=== PATIENT | male | born 1965 | race Caucasian/White ===

== ENCOUNTER 2019-04-30 22:00 | Emergency (ER) | payer BC, OTHER ==
--- NOTE | 2019-05-01 00:22 | EDM.PDOC ---
ED HPI GENERAL MEDICAL PROBLEM - General Chief Complaint: Syncope Stated Complaint: [facility] Time Seen by Provider: 04/30/19 23:59 Source of Information: Reports: Patient, Significant Other (Girlfriend) History Limitations: Reports: No Limitations - History of Present Illness INITIAL COMMENTS - FREE TEXT/NARRATIVE: Mr. Faria is a pleasant 53-year-old man with no significant past medical history, who states that he was eating dinner, when he started feeling lightheaded. He got up, took about 3 steps, then collapsed into the arms of his girlfriend and others, suffering a syncopal attack. He was assisted to the ground, and was not injured. His girlfriend states that he was unconscious only momentarily, got up, but then fell down again in a second syncopal attack. He was out for about 5 seconds this time. When he regained consciousness, he was kept on the floor. A nurse practitioner who witnessed the event came to the patient's aid and told the patient's girlfriend that the patient had a "good pulse". The patient's girlfriend states that the patient looked pale and was clammy. EMS was called, and brought the patient to the ED. The patient states that at no time did he experience any chest pain or palpitations, dyspnea, abdominal pain, nausea, vomiting, constipation, diarrhea , or urinary symptoms. The patient states that he had a similar episode about 6 or 7 years ago. He was taken to the ED the in [place], [place], where, he states, his workup was negative. The patient states that he has been feeling lightheaded for about one month. He states that he saw his PCP, who ordered blood work, an ECG, and an MRI of his head, all of which returned normal. Here in the ED, the patient is found to be hemodynamically stable. He states that he feels completely back to normal. The patient's PCP is Dr. Efren Terry. 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 [No Known Home Meds] 04/30/19 [History] Past Medical History Respiratory History: Reports: Asthma (possible, not tested) Endocrine/Metabolic History: Reports: Obesity/BMI 30+ - Past Surgical History GI Surgical History: Reports: Cholecystectomy (early ) Social & Family History - Tobacco Use Smoking Status *Q: Never Smoker Tobacco Use Within Last Twelve Months: Smokeless Tobacco (Chews 1 can/day) - Caffeine Use Caffeine Use: Reports: None - Alcohol Use Alcohol Use History: Yes Alcohol Use Frequency: Socially (occasionally to excess) - Recreational Drug Use Recreational Drug Use: No - Living Situation & Occupation Living situation: Reports: , with Significant Other (Girlfriend) Occupation: Employed ([employer]) ED ROS GENERAL - Review of Systems Review Of Systems: ROS reveals no pertinent complaints other than HPI. - Physical Exam Exam: See Below Exam Limited By: No Limitations General Appearance: Alert, WD/WN, No Apparent Distress Eye Exam: Bilateral Eye: EOMI, Normal Inspection Ears: Normal External Exam, Hearing Grossly Normal Nose: Normal Inspection Throat/Mouth: Normal Inspection, Normal Lips, Normal Voice, No Airway Compromise Head Exam: Atraumatic, Normocephalic Neck: Normal Inspection, Full Range of Motion Respiratory/Chest: No Respiratory Distress, Lungs Clear, Normal Breath Sounds, No Accessory Muscle Use Cardiovascular: Normal Peripheral Pulses, Regular Rate, Rhythm, No Edema, No Gallop, No JVD, No Murmur, No Rub GI/Abdominal: Normal Bowel Sounds, Soft, Non-Tender, No Organomegaly, No Distention, No Abnormal Bruit, No Mass (Male) Exam: Deferred Rectal (Males) Exam: Deferred Neuro Exam (Abbreviated): Alert, Oriented, CN II-XII Intact, Normal Cognition, No Motor/Sensory Deficits Back Exam: Normal Inspection, Full Range of Motion, NT Extremities: Normal Inspection, Normal Range of Motion, No Pedal Edema, Normal Capillary Refill Psychiatric: Normal Affect Skin Exam: Warm, Dry, Intact, Normal Color, No Rash EKG INTERPRETATION EKG Date: 05/01/19 Time: 00:09 Rhythm: NSR Rate (Beats/Min): 73 [place]: Normal P-Wave: Present QRS: Normal ST-T: Normal (Diffuse J-point elevations, but no T-wave inversions or ischemic changes) QT: Normal Comparison: NA - No Prior EKG Course - Vital Signs Last Recorded V/S: Last Vital Signs Temp 36.5 C 04/30/19 22:05 Pulse 74 04/30/19 22:05 Resp 19 04/30/19 22:05 BP 105/72 04/30/19 22:05 Pulse Ox 93 L 04/30/19 22:05 Orthostatic Blood Pressure [ 118/84 Standing] Orthostatic Blood Pressure [ 98/55 Sitting] Orthostatic Blood Pressure [ 107/71 Supine] - Orders/Labs/Meds Labs: Laboratory Tests 04/30/19 04/30/19 04/30/19 Range/Units 23:25 23:25 23:25 WBC 8.07 (4.23-9.07) K/mm3 RBC 4.71 (4.63-6.08) M/mm3 Hgb 13.8 (13.7-17.5) gm/L Hct 39.2 L (40.1-51.0) % MCV 83.2 (79.0-92.2) fl MCH 29.3 (25.7-32.2) pg MCHC 35.2 (32.2-35.5) g/dl RDW Std Deviation 38.8 (35.1-43.9) fL Plt Count 293 (163-337) K/mm3 MPV 9.3 L (9.4-12.3) fl Neut % (Auto) 68.2 H (34.0-67.9) % Lymph % (Auto) 18.7 L (21.8-53.1) % [place] % (Auto) 10.8 (5.3-12.2) % Eos % (Auto) 1.6 (0.8-7.0) Baso % (Auto) 0.5 (0.1-1.2) % Neut # (Auto) 5.50 H (1.78-5.38) K/mm3 Lymph # (Auto) 1.51 (1.32-3.57) K/mm3 [place] # (Auto) 0.87 H (0.30-0.82) K/mm3 Eos # (Auto) 0.13 (0.04-0.54) K/mm3 Baso # (Auto) 0.04 (0.01-0.08) K/mm3 D-Dimer, Quantitative (0.19-0.50) mg/L Sodium 138 (136-145) mEq/L Potassium 3.5 (3.5-5.1) mEq/L Chloride 106 (98-107) mEq/L Carbon Dioxide 24 (21-32) mEq/L Anion Gap 11.5 (5-15) BUN 22 H (7-18) mg/dL Creatinine 1.1 (0.7-1.3) mg/dL Est Cr Clr Drug Dosing 88.78 mL/min Estimated GFR (MDRD) > 60 (>60) mL/min BUN/Creatinine Ratio 20.0 H (14-18) Glucose 97 (74-106) mg/dL Calcium 8.3 L (8.5-10.1) mg/dL Magnesium 2.2 (1.8-2.4) mg/dl Total Bilirubin 0.4 (0.2-1.0) mg/dL AST 11 L (15-37) U/L ALT 20 (16-63) U/L Alkaline Phosphatase 66 (46-116) U/L Troponin I < 0.017 (0.00-0.056) ng/mL Total Protein 6.9 (6.4-8.2) g/dl Albumin 3.4 (3.4-5.0) g/dl Globulin 3.5 gm/dL Albumin/Globulin Ratio 1.0 (1-2) 04/30/19 Range/Units 23:25 WBC (4.23-9.07) K/mm3 RBC (4.63-6.08) M/mm3 Hgb (13.7-17.5) gm/L Hct (40.1-51.0) % MCV (79.0-92.2) fl MCH (25.7-32.2) pg MCHC (32.2-35.5) g/dl RDW Std Deviation (35.1-43.9) fL Plt Count (163-337) K/mm3 MPV (9.4-12.3) fl Neut % (Auto) (34.0-67.9) % Lymph % (Auto) (21.8-53.1) % [place] % (Auto) (5.3-12.2) % Eos % (Auto) (0.8-7.0) Baso % (Auto) (0.1-1.2) % Neut # (Auto) (1.78-5.38) K/mm3 Lymph # (Auto) (1.32-3.57) K/mm3 [place] # (Auto) (0.30-0.82) K/mm3 Eos # (Auto) (0.04-0.54) K/mm3 Baso # (Auto) (0.01-0.08) K/mm3 D-Dimer, Quantitative 0.24 (0.19-0.50) mg/L Sodium (136-145) mEq/L Potassium (3.5-5.1) mEq/L Chloride (98-107) mEq/L Carbon Dioxide (21-32) mEq/L Anion Gap (5-15) BUN (7-18) mg/dL Creatinine (0.7-1.3) mg/dL Est Cr Clr Drug Dosing mL/min Estimated GFR (MDRD) (>60) mL/min BUN/Creatinine Ratio (14-18) Glucose (74-106) mg/dL Calcium (8.5-10.1) mg/dL Magnesium (1.8-2.4) mg/dl Total Bilirubin (0.2-1.0) mg/dL AST (15-37) U/L ALT (16-63) U/L Alkaline Phosphatase (46-116) U/L Troponin I (0.00-0.056) ng/mL Total Protein (6.4-8.2) g/dl Albumin (3.4-5.0) g/dl Globulin gm/dL Albumin/Globulin Ratio (1-2) - Re-Assessments/Exams Free Text/Narrative Re-Assessment/Exam: 05/01/19 00:20 Orthostatics were checked by the patient's nurse earlier, but only supine to sitting, not standing, since the patient reported dizziness when standing. They returned negative, however, true orthostatics are changes in blood pressure and/ or heart rate between supine and standing, therefore orthostatics were not really ruled out. I therefore had Lissy RN repeat the orthostatics supine to standing with me holding onto him in case he felt dizzy. He stated that he felt a little dizzy when he stood up, but nothing severe, and his subsequent orthostatics are negative. 05/01/19 01:06 2 view chest radiograph appears to be grossly normal. The cardiac silhouette is within normal limits. No pulmonary vascular congestion. No pleural effusions. No focal infiltrate. No pneumothorax. Formal read per the Radiologist pending. The patient's CBC is remarkable for a hematocrit slightly low at 39.2, with the remainder of the CBC being unremarkable. His CMP is remarkable for a BUN slightly elevated at 22, with the remainder of the CMP being unremarkable. His magnesium level is within normal limits at 2.2. His troponin is undetectably low. His D-dimer is within normal limits at 0.24. The cause of the patient's syncope is unclear. He is not orthostatic or anemic, he has not suffered an acute [place], and he does not have a PE. Based on his history , it does not sound like this was a vagal episode, although syncope during a meal or postprandial is a possibility. A cardiac dysrhythmia is a possibility, especially if the patient has a structural heart disorder. Further workup, that may include an echocardiogram, is obviously needed. I will discharge the patient home with instructions that he follow-up with his PCP for further evaluation. Departure - Departure Time of Disposition: 01:27 Disposition: Home, Self-Care 01 Condition: Good Clinical Impression: Syncope - Discharge Information *PRESCRIPTION DRUG MONITORING PROGRAM REVIEWED*: Not Applicable *COPY OF PRESCRIPTION DRUG MONITORING REPORT IN PATIENT ZHENG: Not Applicable Instructions: Syncope, [id number] Referrals: Efren Terry MD [Primary Care Provider] - Forms: ED Department Discharge Additional Instructions: You were seen in the emergency room after becoming lightheaded and passing out, twice. Workup in the ER included blood work, positional blood pressure checks, a chest x-ray, and an ECG. Your entire workup was unremarkable, and does not explain the cause of your passing out. Further workup is necessary. Make sure that you stay adequately hydrated. Gatorade or Powerade are best. Please follow-up with your PCP, Dr. Efren Terry, at the next available appointment. If any other problems, please do not hesitate to return to the ER.
--- NOTE | 2019-05-01 07:40 | CR ---
Chest: 2 views of the chest were obtained. Comparison: Prior chest x-ray 10/23/11. Heart size and mediastinum are within normal limits. Possible nodule adjacent to the right mediastinum overlying the anterior right 1st rib. Slight atelectasis is seen within the left base. Lungs otherwise are clear. Old healed right sided clavicle fracture is noted. Diffuse disc space narrowing and endplate spurring is noted within the spine. Surgical clips noted within the upper abdomen. Impression: 1. Possible nodule within the right upper lung. Noncontrast chest CT recommended to further evaluate. 2. Mild left basilar atelectasis. 3. Incidental bony findings. Nothing acute is otherwise seen. Diagnostic code #9
== END 2019-05-01 01:46 | disposition home or self-care (01) ==
LOC: JD.ED 22:00
DX: R55 Syncope and collapse (principal)
CPT/HCPCS: 36415; 71046; 71046-26; 80053; 83735; 84484; 85025; 85379; 93005; 93010; 99283; 99285-25

== ENCOUNTER 2020-07-10 17:09 | Emergency (ER) | payer OTHER ==
--- NOTE | 2020-07-10 17:42 | EDM.PDOC ---
<Michael Koroma - Last Filed: 07/10/20 18:52> ED HPI GENERAL MEDICAL PROBLEM - General Chief Complaint: Neurological Problem Stated Complaint: MEMORY LOSS Time Seen by Provider: 07/10/20 17:41 - History of Present Illness INITIAL COMMENTS - FREE TEXT/NARRATIVE: 54-year-old male presents the emergency room with memory loss lightheadedness and not feeling right. This afternoon at work the patient was not feeling well he just felt weak and tired and a little dizzy at times he would see stars if he turned his head too quickly. He went home early and this did not improve he had a hard time remembe ring his girlfriend's name his neighbors names and became quite concerned about this and presented to the emergency room. Patient has never had symptoms like this in the past he is not on any routine medications. Patient does state that he drank quite a bit of coffee earlier today. Patient has not had any chest pain chest pressure breathing difficulties or shortness of breath he really cannot identify any weakness on one side or the other. - Related Data Allergies Allergy/AdvReac Type Severity Reaction Status Date / Time No Known Allergies Allergy Verified 07/10/20 17:25 Home Meds: Home Meds Meloxicam 15 mg PO DAILY 07/10/20 [History] Rizatriptan Benzoate [Rizatriptan] 1 tab PO ASDIRECTED PRN #3 tab.rapdis [Rx] Past Medical History Respiratory History: Reports: Asthma (possible, not tested) Endocrine/Metabolic History: Reports: Obesity/BMI 30+ - Past Surgical History GI Surgical History: Reports: Cholecystectomy (early ) Social & Family History - Tobacco Use Tobacco Use Status *Q: Never Tobacco User Second Hand Smoke Exposure: No - Caffeine Use Caffeine Use: Reports: None - Recreational Drug Use Recreational Drug Use: No - Living Situation & Occupation Living situation: Reports: , with Significant Other (Girlfriend) Occupation: Employed ([employer]) ED ROS GENERAL - Review of Systems Review Of Systems: See Below Constitutional: Reports: Weakness, Fatigue. Denies: Fever, Chills HEENT: Reports: Other (He sees stars at times) Respiratory: Reports: No Symptoms Cardiovascular: Reports: No Symptoms Endocrine: Reports: No Symptoms GI/Abdominal: Reports: Other (Little nauseated) Musculoskeletal: Reports: No Symptoms Skin: Reports: No Symptoms Neurological: Reports: Confusion, Dizziness, Difficulty Walking Psychiatric: Reports: No Symptoms Hematologic/Lymphatic: Reports: No Symptoms Immunologic: Reports: No Symptoms ED EXAM, NEURO - Physical Exam Exam: See Below Exam Limited By: No Limitations General Appearance: Alert, No Apparent Distress Eye Exam: Bilateral Eye: EOMI, Normal Inspection, PERRL Ears: Normal External Exam, Normal Canal, Hearing Grossly Normal, Normal TMs Nose: Normal Inspection, Normal Mucosa, No Blood Throat/Mouth: Normal Inspection, Normal Lips, Normal Gums, Normal Oropharynx, Normal Voice, No Airway Compromise Head Exam: Atraumatic, Normocephalic Neck: Normal Inspection, Supple, Non-Tender, Full Range of Motion. No: Lymphadenopathy (L), Lymphadenopathy (R) Respiratory/Chest: No Respiratory Distress, Lungs Clear, Normal Breath Sounds Cardiovascular: Regular Rate, Rhythm, No Edema, No Murmur GI/Abdominal: Normal Bowel Sounds, Soft, Non-Tender Neurological: Other (The patient is answering questions appropriately from a I did try and stand him a became lightheaded so I sat him back down and he did better. Best I can tell is all his muscle groups in all 4 extremities are equal and appropriate bilaterally. Deep tendon reflexes at the brachial radialis are equal and appropriate bilaterally cranial nerve exam is entirely within normal limits 2 through 12. And [id number] testing is normal.) Course - Re-Assessments/Exams Free Text/Narrative Re-Assessment/Exam: 07/10/20 18:59 At this time it is change of shift further care and disposition per Dr. Wolf Departure - Departure Disposition: Home, Self-Care 01 Clinical Impression: Migraine with aura - Discharge Information Referrals: Efren Terry MD [Primary Care Provider] - Forms: ED Department Discharge Additional Instructions: You were seen in the emergency room after developing weakness, tiredness, flashing lights, and a headache this afternoon. Work-up in the ER included positional blood pressure checks, an Accu-Chek, blood tests, a CT of your head without contrast, and an ECG. Your entire work-up was unremarkable. You have not suffered a stroke or a heart attack. No significant lab abnormalities were found. Your headache resolved after you were given IM Haldol, indicating that your symptoms were due to a migraine. We recommend that you stay adequately hydrated and get plenty of rest tonight in a dark, quiet place. You should feel back to normal in the morning. A prescription for the anti-migraine medicine rizatriptan (Maxalt) has been sent to the [facility], located just south and across the [address] from [facility]. Dissolve 1 tablet of rizatriptan in your mouth, like a lozenge, at the earliest onset of migraine symptoms. You may repeat after 2 hours, if needed, to a maximum of 3 tablets within a 24-hour period. If rizatriptan works to treat your migraines, we recommend that you follow-up with your PCP, Dr. Terry, to get an additional prescription. If any other problems, please do not hesitate to return to the ER. Sepsis Event Note (ED) - Evaluation Sepsis Screening Result: No Definite Risk <Robert Wolf - Last Filed: 07/10/20 21:47> #1 Interpretation EKG Date: 07/10/20 Time: 19:16 Rhythm: NSR Rate (Beats/Min): 69 [place]: Normal P-Wave: Present (? LAE) QRS: Normal ST-T: Normal QT: Normal Comparison: No Change Course - Vital Signs Last Recorded V/S: Last Vital Signs Temp 36.3 C 07/10/20 17:22 Pulse 81 07/10/20 17:22 Resp 16 07/10/20 17:22 BP 148/109 H 07/10/20 17:22 Pulse Ox 95 07/10/20 17:22 Orthostatic Blood Pressure [ 147/116 Standing] Orthostatic Blood Pressure [ 144/131 Sitting] Orthostatic Blood Pressure [ 142/94 Supine] - Orders/Labs/Meds Orders: Active Orders 24 hr Category Date Time Status EKG 12 Lead [EKG Documentation Completion] [RC] STAT Care 07/10/20 17:51 Active Orthostatic Vital Signs [RC] STAT Care 07/10/20 19:37 Active Head wo Cont [CT] Stat Exams 07/10/20 17:40 Taken Labs: Laboratory Tests 07/10/20 07/10/20 07/10/20 Range/Units 17:34 17:50 17:50 WBC 9.97 H (4.23-9.07) K/mm3 RBC 5.82 (4.63-6.08) M/mm3 Hgb 16.1 D (13.7-17.5) gm/dl Hct 48.0 (40.1-51.0) % MCV 82.5 (79.0-92.2) fl MCH 27.7 (25.7-32.2) pg MCHC 33.5 (32.2-35.5) g/dl RDW Std Deviation 39.5 (35.1-43.9) fL Plt Count 347 H (163-337) K/mm3 MPV 9.3 L (9.4-12.3) fl Neutrophils % (Manual) 60 (40-60) % Band Neutrophils % 2 (0-10) % Lymphocytes % (Manual) 31 (20-40) % Atypical Lymphs % 0 % Monocytes % (Manual) 4 (2-10) % Eosinophils % (Manual) 2 (0.8-7.0) % Basophils % (Manual) 1 (0.2-1.2) Platelet Estimate Adequate RBC Morph Comment Normal PT 10.3 (9.7-12.0) SECONDS INR 0.96 Sodium (136-145) mEq/L Potassium (3.5-5.1) mEq/L Chloride (98-107) mEq/L Carbon Dioxide (21-32) mEq/L Anion Gap (5-15) BUN (7-18) mg/dL Creatinine (0.7-1.3) mg/dL Est Cr Clr Drug Dosing mL/min Estimated GFR (MDRD) (>60) mL/min BUN/Creatinine Ratio (14-18) Glucose (74-106) mg/dL POC Glucose 74 (70-105) mg/dL Calcium (8.5-10.1) mg/dL Total Bilirubin (0.2-1.0) mg/dL AST (15-37) U/L ALT (16-63) U/L Alkaline Phosphatase (46-116) U/L Troponin I (0.00-0.056) ng/mL Total Protein (6.4-8.2) g/dl Albumin (3.4-5.0) g/dl Globulin gm/dL Albumin/Globulin Ratio (1-2) 11/16/20 Range/Units 17:50 WBC (4.23-9.07) K/mm3 RBC (4.63-6.08) M/mm3 Hgb (13.7-17.5) gm/dl Hct (40.1-51.0) % MCV (79.0-92.2) fl MCH (25.7-32.2) pg MCHC (32.2-35.5) g/dl RDW Std Deviation (35.1-43.9) fL Plt Count (163-337) K/mm3 MPV (9.4-12.3) fl Neutrophils % (Manual) (40-60) % Band Neutrophils % (0-10) % Lymphocytes % (Manual) (20-40) % Atypical Lymphs % % Monocytes % (Manual) (2-10) % Eosinophils % (Manual) (0.8-7.0) % Basophils % (Manual) (0.2-1.2) Platelet Estimate RBC Morph Comment PT (9.7-12.0) SECONDS INR Sodium 134 L (136-145) mEq/L Potassium 4.0 (3.5-5.1) mEq/L Chloride 98 (98-107) mEq/L Carbon Dioxide 26 (21-32) mEq/L Anion Gap 14.0 (5-15) BUN 20 H (7-18) mg/dL Creatinine 1.2 (0.7-1.3) mg/dL Est Cr Clr Drug Dosing 80.45 mL/min Estimated GFR (MDRD) > 60 (>60) mL/min BUN/Creatinine Ratio 16.7 (14-18) Glucose 92 (74-106) mg/dL POC Glucose (70-105) mg/dL Calcium 8.7 (8.5-10.1) mg/dL Total Bilirubin 0.5 (0.2-1.0) mg/dL AST 14 L (15-37) U/L ALT 33 (16-63) U/L Alkaline Phosphatase 77 (46-116) U/L Troponin I < 0.017 (0.00-0.056) ng/mL Total Protein 7.9 (6.4-8.2) g/dl Albumin 3.8 (3.4-5.0) g/dl Globulin 4.1 gm/dL Albumin/Globulin Ratio 0.9 L (1-2) Meds: Medications Discontinued Medications Generic Name Dose Route Start Last Admin Trade Name Freq PRN Reason Stop Dose Admin Benztropine Mesylate 1 mg 07/10/20 20:23 07/10/20 20:37 Cogentin PO 07/10/20 20:24 1 mg ONETIME STA Administration Haloperidol Lactate 5 mg 07/10/20 20:23 07/10/20 20:37 Haldol IM 07/10/20 20:24 5 mg ONETIME ONE Administration - Re-Assessments/Exams Free Text/Narrative Re-Assessment/Exam: 07/10/20 19:[address] Koroma. The patient's CBC is remarkable for a WBC count slightly elevated at 9.97, but with only 2% bandemia. He has a mild thrombocytosis of 347,000, with the remainder of his CBC being unremarkable. His CMP is remarkable for a sodium slightly depressed at 134, a BUN slightly elevated at 20, but with a Cr normal at 1.2, and the remainder of his CMP being unremarkable. His troponin is undetectably low. His INR is within normal limits at 0.96. CT of the head without contrast is read by vRvlad as: 1. Negative head CT. 2. [place] Stroke Program Early CT Score (ASPECTS) = 10. I have ordered orthostatics. 07/10/20 20:03 The patient is not orthostatic. 07/10/20 20:24 I evaluated the patient. He reports that he had developed a headache, a dull ache felt across his forehead, along with visual flashing lights around 16:00. The flashing lights resolved after about 30 minutes, although his headache per sists until now. He also feels a little lightheaded at this time. At no time did he have any nausea or vomiting, and while he had some memory loss earlier, he states that has since resolved. At no time did he have any tingling, numbness, or weakness. The patient states that he had similar symptoms about 1 year ago, was seen in this ED, with a negative work-up. He states that he subsequently followed up with both a Neurologist and a Jockey'S Agent, with negative work-ups. The cause of his symptoms was never determined. The patient's neurologic examination is completely normal at this time. I suspect that he is suffering from a migraine. I therefore proposed that we treat him with IM Haldol and oral Cogentin, to see if that resolves his headache and lightheadedness. The patient agreed. Since he does not have any nausea or vomiting, he does not need IV Zofran or IV fluid. 07/10/20 21:40 Following IM Haldol, the patient reports complete resolution of his headache, confirming that his symptoms were due to a migraine. He does report, however, increased jitteriness, which is a known potential side effect of Haldol. I would expect that his symptoms should be completely resolved by the morning. I will discharge him home with a prescription for rizatriptan. Departure - Departure Time of Disposition: 21:40 Condition: Good - Discharge Information *PRESCRIPTION DRUG MONITORING PROGRAM REVIEWED*: Not Applicable *COPY OF PRESCRIPTION DRUG MONITORING REPORT IN PATIENT ZHENG: Not Applicable Sepsis Event Note (ED) - Focused Exam Vital Signs: Vital Signs Temp Pulse Resp BP Pulse Ox 07/10/20 17:22 36.3 C 81 16 148/109 H 95 - My Orders Last 24 Hours: My Active Orders 07/10/20 19:37 Orthostatic Vital Signs [RC] STAT - Assessment/Plan Last 24 Hours: My Active Orders 07/10/20 19:37 Orthostatic Vital Signs [RC] STAT
[2020-07-10] MEDS ORDERED: Benztropine 1 MG Tab PO STA (20:23)
[2020-07-10] MEDS ORDERED: Haloperidol Lactate 5 MG/ML SDV IM ONE (20:23)
--- NOTE | 2020-07-11 08:39 | CT ---
PROCEDURE INFORMATION: Exam: CT Head Without Contrast Exam date and time: 07/10/2020 5:39 PM Age: 54 years old Clinical indication: Altered mental status/memory loss TECHNIQUE: Imaging protocol: Computed tomography of the head without contrast. Radiation optimization: All CT scans at this facility use at least one of these dose optimization techniques: automated exposure control; mA and/or kV adjustment per patient size (includes targeted exams where dose is matched to clinical indication); or iterative reconstruction. Other technique: STROKE PROTOCOL was implemented. COMPARISON: No relevant prior studies available. FINDINGS: Brain: No mass effect or midline shift. No abnormal densities are seen intracranially; no sign of acute intracranial hemorrhage or cerebral edema. Cerebral ventricles: No ventriculomegaly. Bones/joints: Skull base and overlying calvarium are intact. No lytic or osteosclerotic lesions. Paranasal sinuses: Visualized sinuses are unremarkable. No fluid levels. Mastoid air cells: Visualized mastoid air cells are well aerated. Soft tissues: Unremarkable. IMPRESSION: 1. Negative head CT. 2. [place] Stroke Program Early CT Score (ASPECTS) = 10. Thank you for allowing us to participate in the care of your patient. Dictated and Authenticated by: Andrwe Jimenez MD 07/10/2020 6:56 PM Central Time ([place] & [place]) [facility]TT[facility]
== END 2020-07-10 21:55 | disposition home or self-care (01) ==
LOC: JD.ED 17:09
DX: G43.109 Migraine with aura, not intractable, without status migrainosus (principal); E66.9 Obesity, unspecified; Z68.39 Body mass index [BMI] 39.0-39.9, adult
CPT/HCPCS: 36415; 70450; 80053; 82962; 84484; 85007; 85027; 85610; 93005; 96372; 99285; A9270; J1630; 93010; 99284

== ENCOUNTER 2020-07-24 10:20 | Emergency (ER) | payer OTHER ==
--- NOTE | 2020-07-24 11:45 | EDM.PDOC ---
ED HPI GENERAL MEDICAL PROBLEM - General Chief Complaint: General Stated Complaint: CONFUSED,DIZZY,LIGHTHEADED Time Seen by Provider: 07/24/20 11:22 Source of Information: Reports: Patient, RN Notes Reviewed History Limitations: Reports: No Limitations - History of Present Illness INITIAL COMMENTS - FREE TEXT/NARRATIVE: Patient is a 54-year-old male who presents to the ED for his ongoing confusion, dizziness lightheadedness. Patient was evaluated in this ER a couple weeks ago, was thought to have a migraine, given some IM Haldol and discharged home. He states that the IM Haldol took about 2 days to get out of his system, and he does not believe that that helped all too much he has been having increased confusion after this, and he states is been worse since Thanksgiving again. He states is pretty persistent however it is episodic, and comes and goes. He notes at times where he can even remember his girlfriend's last names or he cannot recognize people on the TV that he should know. And then all of a sudden it gets better. He has been dealing this for quite some time, he has had multiple work-ups with multiple specialists and no one seems to find any thing wrong with him. He did have a head CT at his last ER visit, and everything was normal. He notes while he is sitting here and in the waiting room, his memory cleared up a bit and he feels better. He was concerned about possible carbon monoxide poisoning. His primary care provider is Dr. Terry. He has no headache, no fevers or chills, no cough/shortness of breath, no nausea/vomiting/diarrhea. He is complaining mainly of these memory issues. He cannot really put a finger on it, and he does states he feels confused when the spells happen. His primary care provider was questioning the possibility of a brain MRI for further evaluation. - Related Data Allergies Allergy/AdvReac Type Severity Reaction Status Date / Time No Known Allergies Allergy Verified 07/10/20 17:25 Home Meds: Home Meds Meloxicam 15 mg PO DAILY 07/10/20 [History] Past Medical History Respiratory History: Reports: Asthma Musculoskeletal History: Reports: Other (See Below) Other Musculoskeletal History: Hip pain Neurological History: Reports: Other (See Below) Other Neuro History: Head injury Endocrine/Metabolic History: Reports: Obesity/BMI 30+ - Past Surgical History GI Surgical History: Reports: Cholecystectomy Social & Family History - Family History Family Medical History: No Pertinent Family History - Tobacco Use Tobacco Use Status *Q: Former Tobacco User Used Tobacco, but Quit: Yes Month/Year Tobacco Last Used: 06/2019 - Caffeine Use Caffeine Use: Reports: None - Recreational Drug Use Recreational Drug Use: No - Living Situation & Occupation Living situation: Reports: , with Significant Other (Girlfriend) 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 ED EXAM, GENERAL - Physical Exam Exam: See Below Exam Limited By: No Limitations General Appearance: Alert, WD/WN, No Apparent Distress Eye Exam: Bilateral Eye: EOMI, Normal Inspection, PERRL Respiratory/Chest: No Respiratory Distress, Lungs Clear, Normal Breath Sounds, No Accessory Muscle Use, Chest Non-Tender Cardiovascular: Normal Peripheral Pulses, Regular Rate, Rhythm, No Murmur Peripheral Pulses: 2+: Radial (L), Radial (R) GI/Abdominal: Normal Bowel Sounds, Soft, Non-Tender, No Distention, No Mass Extremities: Normal Inspection, Normal Capillary Refill Neurological: Alert, Oriented, Normal Cognition, No Motor/Sensory Deficits Psychiatric: Normal Affect, Normal Mood Skin Exam: Warm, Dry, Intact, Normal Color, No Rash #1 Interpretation EKG Date: 07/24/20 Time: 10:46 Rhythm: NSR Rate (Beats/Min): 92 [place]: Normal P-Wave: Present QRS: Normal ST-T: Normal QT: Prolonged (mildly at 478) ME/PQ Interval: 167 EKG Interpretation Comments: Reviewed by myself and Dr. 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 There is a suspect delta wave present in V3 as well, consider Muñoz [id number] syndrome. Course - Vital Signs Last Recorded V/S: Last Vital Signs Temp 98.0 F 07/24/20 10:51 Pulse 40 L 07/24/20 10:51 Resp 12 07/24/20 10:51 BP 128/93 H 07/24/20 10:51 Pulse Ox 94 L 07/24/20 10:51 - Orders/Labs/Meds Orders: Active Orders 24 hr Category Date Time Status EKG Documentation Completion [RC] STAT Care 07/24/20 11:26 Active Labs: Laboratory Tests 07/24/20 07/24/20 07/24/20 Range/Units 10:50 10:50 11:30 WBC 6.97 (4.23-9.07) K/mm3 RBC 5.38 (4.63-6.08) M/mm3 Hgb 15.6 (13.7-17.5) gm/dl Hct 44.0 (40.1-51.0) % MCV 81.8 (79.0-92.2) fl MCH 29.0 (25.7-32.2) pg MCHC 35.5 (32.2-35.5) g/dl RDW Std Deviation 39.6 (35.1-43.9) fL Plt Count 285 (163-337) K/mm3 MPV 9.7 (9.4-12.3) fl Neut % (Auto) 67.0 (34.0-67.9) % Lymph % (Auto) 20.7 L (21.8-53.1) % Tift % (Auto) 10.2 (5.3-12.2) % Eos % (Auto) 1.7 (0.8-7.0) Baso % (Auto) 0.4 (0.1-1.2) % Neut # (Auto) 4.67 (1.78-5.38) K/mm3 Lymph # (Auto) 1.44 (1.32-3.57) K/mm3 Tift # (Auto) 0.71 (0.30-0.82) K/mm3 Eos # (Auto) 0.12 (0.04-0.54) K/mm3 Baso # (Auto) 0.03 (0.01-0.08) K/mm3 Manual Slide Review Not Reportable Puncture Site Rt radial ABG pH 7.45 (7.35-7.45) ABG pCO2 35.4 (35.0-45.0) mmHg ABG pO2 64.0 L (80.0-100.0) mmHg ABG HCO3 24.1 (22.0-26.0) meq/L ABG O2 Saturation 91.8 L (96.0-97.0) % ABG Base Excess 1.0 (-2-2.0) ABG Hemoglobin (12.0-18.0) g/L ABG Oxyhemoglobin ABG Carboxyhemoglobin (0.00-1.50) %THgb ABG Methemoglobin (0.00-1.5) % Andrew Test Positive O2 Delivery Device Room air FiO2 0.00 L (21.00-100.00) % Sodium 136 (136-145) mEq/L Potassium 3.9 (3.5-5.1) mEq/L Chloride 100 (98-107) mEq/L Carbon Dioxide 25 (21-32) mEq/L Anion Gap 14.9 (5-15) BUN 19 H (7-18) mg/dL Creatinine 1.2 (0.7-1.3) mg/dL Est Cr Clr Drug Dosing 80.45 mL/min Estimated GFR (MDRD) > 60 (>60) mL/min BUN/Creatinine Ratio 15.8 (14-18) Glucose 92 (74-106) mg/dL Calcium 8.9 (8.5-10.1) mg/dL Total Bilirubin 0.6 (0.2-1.0) mg/dL AST 17 (15-37) U/L ALT 38 (16-63) U/L Alkaline Phosphatase 77 (46-116) U/L Total Protein 7.7 (6.4-8.2) g/dl Albumin 3.8 (3.4-5.0) g/dl Globulin 3.9 gm/dL Albumin/Globulin Ratio 1.0 (1-2) 30/20 Range/Units 11:37 WBC (4.23-9.07) K/mm3 RBC (4.63-6.08) M/mm3 Hgb (13.7-17.5) gm/dl Hct (40.1-51.0) % MCV (79.0-92.2) fl MCH (25.7-32.2) pg MCHC (32.2-35.5) g/dl RDW Std Deviation (35.1-43.9) fL Plt Count (163-337) K/mm3 MPV (9.4-12.3) fl Neut % (Auto) (34.0-67.9) % Lymph % (Auto) (21.8-53.1) % Tift % (Auto) (5.3-12.2) % Eos % (Auto) (0.8-7.0) Baso % (Auto) (0.1-1.2) % Neut # (Auto) (1.78-5.38) K/mm3 Lymph # (Auto) (1.32-3.57) K/mm3 Tift # (Auto) (0.30-0.82) K/mm3 Eos # (Auto) (0.04-0.54) K/mm3 Baso # (Auto) (0.01-0.08) K/mm3 Manual Slide Review Puncture Site ABG pH (7.35-7.45) ABG pCO2 (35.0-45.0) mmHg ABG pO2 (80.0-100.0) mmHg ABG HCO3 (22.0-26.0) meq/L ABG O2 Saturation (96.0-97.0) % ABG Base Excess (-2-2.0) ABG Hemoglobin 15.5 (12.0-18.0) g/L ABG Oxyhemoglobin 89.4 ABG Carboxyhemoglobin 1.2 (0.00-1.50) %THgb ABG Methemoglobin 1.3 (0.00-1.5) % Andrew Test O2 Delivery Device Room air FiO2 (21.00-100.00) % Sodium (136-145) mEq/L Potassium (3.5-5.1) mEq/L Chloride (98-107) mEq/L Carbon Dioxide (21-32) mEq/L Anion Gap (5-15) BUN (7-18) mg/dL Creatinine (0.7-1.3) mg/dL Est Cr Clr Drug Dosing mL/min Estimated GFR (MDRD) (>60) mL/min BUN/Creatinine Ratio (14-18) Glucose (74-106) mg/dL Calcium (8.5-10.1) mg/dL Total Bilirubin (0.2-1.0) mg/dL AST (15-37) U/L ALT (16-63) U/L Alkaline Phosphatase (46-116) U/L Total Protein (6.4-8.2) g/dl Albumin (3.4-5.0) g/dl Globulin gm/dL Albumin/Globulin Ratio (1-2) - Re-Assessments/Exams Free Text/Narrative Re-Assessment/Exam: 07/24/20 11:45 Patient presents to the ED for evaluation of his forgetfulness and confusion. We will repeat some baseline labs, and get a blood gas with cooximetry, as the patient was concerned for carbon monoxide poisoning. EKG was done at time of triage initially because the nurse thought that his heart rate was in the 30s. EKG demonstrates a sinus rhythm of 92 bpm. He does have multiple PVCs causing some of the rate abnormalities I believe she appreciated. At this time if work- up is inconclusive or unremarkable, he will be given an outpatient MRI order for further evaluation. 07/24/20 12:19 Labs are unremarkable, ABG with coox is also in normal limits. Patient will be discharged home with a outpatient MRI order and have him follow-up with Dr. Terry for this. Departure - Departure Time of Disposition: 12:20 Disposition: Home, Self-Care 01 Condition: Good Clinical Impression: Forgetfulness - Discharge Information *PRESCRIPTION DRUG MONITORING PROGRAM REVIEWED*: No *COPY OF PRESCRIPTION DRUG MONITORING REPORT IN PATIENT ZHENG: No Referrals: Efren Terry MD [Primary Care Provider] - Forms: ED Department Discharge Additional Instructions: You were evaluated in the ER today for your ongoing forgetful/confusion e pisodes. Laboratory evaluation today was within normal limits, your carbon monoxide levels were not elevated. At this time we have provided you with an outpatient order for a brain MRI, you are currently scheduled for July 26 at 8 AM. Please come 15 to 20 minutes prior to your scheduled time to complete paperwork and questionnaires that may need to be filled out. If they should need any more information, they will likely call you, please corn picker the phone if you receive a call from the hospital or a private number in the next few days . Please continue all of your regular medications as prescribed. You will need to follow-up with Dr. Terry after your MRI has been completed for results and further management. Please schedule an appointment with him sometime by the end of this week, or beginning of next for this. Please return to the ER at any time if your symptoms change or worsen. Sepsis Event Note (ED) - Evaluation Sepsis Screening Result: No Definite Risk - Focused Exam Vital Signs: Vital Signs Temp Pulse Pulse Resp BP Pulse Ox 07/24/20 10:51 98.0 F 79 40 L 12 128/93 H 94 L - My Orders Last 24 Hours: My Active Orders 07/24/20 11:26 EKG Documentation Completion [RC] STAT - Assessment/Plan Last 24 Hours: My Active Orders 07/24/20 11:26 EKG Documentation Completion [RC] STAT
== END 2020-07-24 12:45 | disposition home or self-care (01) ==
LOC: JD.ED 10:20
DX: R41.3 Other amnesia (principal); J45.909 Unspecified asthma, uncomplicated; E66.9 Obesity, unspecified; Z68.38 Body mass index [BMI] 38.0-38.9, adult; Z79.899 Other long term (current) drug therapy; Z87.891 Personal history of nicotine dependence
CPT/HCPCS: 36415; 36600; 80053; 82803; 85025; 93005; 93010; 99283; 99285-25

== ENCOUNTER 2020-07-27 02:19 | Emergency (ER) | payer OTHER ==
--- NOTE | 2020-07-27 02:41 | EDM.PDOC ---
ED HPI GENERAL MEDICAL PROBLEM - General Chief Complaint: General Stated Complaint: SOB Time Seen by Provider: 07/27/20 02:29 - History of Present Illness INITIAL COMMENTS - FREE TEXT/NARRATIVE: 54-year-old male presents the emergency room with shortness of breath. Patient states no matter what he does he cannot catch his breath. His respirations are nonlabored however it is reported by nursing he was little tachypneic when he arrived here. But this seems to have resolved and he is no better he has no breathing difficulties shortness of breath certainly no chest pain. He has not been coughing. This is been going on essentially all evening. The patient tried to lay down early this evening and thought maybe he would get some rest but just never materialized. The patient uses a CPAP however he could not tolerate the mask and oftentimes when he has episodes like this he just cannot tolerate the mask. Patient's been diagnosed with asthma however his Symbicort and albuterol did not seem to help with the symptoms. - Related Data Allergies Allergy/AdvReac Type Severity Reaction Status Date / Time No Known Allergies Allergy Verified 07/27/20 02:36 Home Meds: Home Meds Meloxicam 15 mg PO DAILY 07/10/20 [History] LORazepam [Ativan] 1 mg PO BEDTIME #15 tab 07/27/20 [Rx] Past Medical History Respiratory History: Reports: Asthma Musculoskeletal History: Reports: Other (See Below) Other Musculoskeletal History: Hip pain Neurological History: Reports: Other (See Below) Other Neuro History: Head injury Endocrine/Metabolic History: Reports: Obesity/BMI 30+ - Past Surgical History GI Surgical History: Reports: Cholecystectomy Social & Family History - Family History Family Medical History: No Pertinent Family History - Caffeine Use Caffeine Use: Reports: None - Living Situation & Occupation Living situation: Reports: , with Significant Other (Girlfriend) 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 Denies: Wheezing, Pleuritic Chest Pain, Cough, Sputum, Hemoptysis Cardiovascular: Reports: No Symptoms. Denies: Chest Pain Endocrine: Reports: Fatigue GI/Abdominal: Reports: No Symptoms : Reports: No Symptoms Musculoskeletal: Reports: No Symptoms Skin: Reports: No Symptoms Neurological: Reports: No Symptoms Psychiatric: Reports: Anxiety. Denies: Agitation, Depression, Homicidal Ideation, Mood Lability, Suicidal Ideation Hematologic/Lymphatic: Reports: No Symptoms Immunologic: Reports: No Symptoms ED EXAM, GENERAL - Physical Exam Exam: See Below Exam Limited By: No Limitations General Appearance: Alert, Anxious Eye Exam: Bilateral Eye: Normal Inspection, PERRL Ears: Normal External Exam, Normal Canal, Hearing Grossly Normal, Normal TMs Nose: Normal Inspection, Normal Mucosa, No Blood Throat/Mouth: Normal Inspection, Normal Lips, Normal Teeth, Normal Gums, Normal Oropharynx, Normal Voice, No Airway Compromise Head: Atraumatic, Normocephalic Neck: Normal Inspection, Supple, Non-Tender, Full Range of Motion Respiratory/Chest: No Respiratory Distress, Lungs Clear, Normal Breath Sounds, Other (Respirations very normal) Cardiovascular: Normal Peripheral Pulses, Regular Rate, Rhythm, No Edema, No Murmur GI/Abdominal: Normal Bowel Sounds, Soft, Non-Tender, Other (Some obesity) Back Exam: Normal Inspection. No: CVA Tenderness (L), CVA Tenderness (R) Extremities: Normal Inspection, No Pedal Edema Neurological: Alert, Oriented, Normal Cognition Psychiatric: Normal Affect, Anxious. No: Depressed Mood, Flat Affect Course - Vital Signs Last Recorded V/S: Last Vital Signs Temp 36.2 C 07/27/20 02:28 Pulse 81 07/27/20 02:28 Resp 21 H 07/27/20 02:28 BP 154/92 H 07/27/20 02:28 Pulse Ox 100 07/27/20 02:28 - Orders/Labs/Meds Orders: Active Orders 24 hr Category Date Time Status CORONAVIRUS COVID-19 PCR [facility] Stat Lab 07/27/20 02:54 Received Meds: Medications Discontinued Medications Generic Name Dose Route Start Last Admin Trade Name Freq PRN Reason Stop Dose Admin Lorazepam 1 mg 07/27/20 02:44 07/27/20 02:51 Ativan IVPUSH 07/27/20 02:45 1 mg ONETIME ONE Administration - Re-Assessments/Exams Free Text/Narrative Re-Assessment/Exam: 07/27/20 03:55 Patient has been in several times over the last few days and just does not get any better. His symptoms sound very suspicious for anxiety. We started an IV given a milligram of Ativan the patient had pretty rapid improvement he was actually able to fall asleep. He feels like he can go home get some rest and actually uses CPAP. We will discharge and give appropriate prescription for a few Ativan. Departure - Departure Time of Disposition: 03:56 Disposition: Home, Self-Care 01 Clinical Impression: Anxiety - Discharge Information Referrals: Efren Terry MD [Primary Care Provider] - Forms: ED Department Discharge Additional Instructions: Return to the emergency room with any questions problems or worsening symptoms. You have been started on Ativan. This is an anxiety type medication. Use 1 1 to 1-1/2 hours before going to bed. Allow 12 hours after using this medication before driving or returning to work. Follow-up with your regular doctor this next week. Sepsis Event Note (ED) - Focused Exam Vital Signs: Vital Signs Temp Pulse Resp BP Pulse Ox 07/27/20 02:28 36.2 C 81 21 H 154/92 H 100 - My Orders Last 24 Hours: My Active Orders 07/27/20 02:54 CORONAVIRUS COVID-[address] [facility] Stat - Assessment/Plan Last 24 Hours: My Active Orders 07/27/20 02:54 CORONAVIRUS COVID-19 PCR [facility] Stat
[2020-07-27] MEDS ORDERED: LORazepam 2 MG/ML SDV IVPUSH ONE (02:44)
== END 2020-07-27 04:05 | disposition home or self-care (01) ==
LOC: JD.ED 02:19
DX: F41.9 Anxiety disorder, unspecified (principal); J45.909 Unspecified asthma, uncomplicated; E66.9 Obesity, unspecified; Z68.39 Body mass index [BMI] 39.0-39.9, adult; Z79.899 Other long term (current) drug therapy; Z20.828 Contact with and (suspected) exposure to other viral communicable diseases
CPT/HCPCS: 87635; 96374; 99283; J2060; U0002